=== PATIENT | female | born 1955 | race Caucasian/White ===

== ENCOUNTER 2017-03-07 22:15 | Emergency (ER) | payer OTHER, MEDICAID ==
[~2017-03-07] VITALS: Ht 167.6 cm; Wt 108.0 kg
[~2017-03-07 22:15] MED LIST: ACYC-63 PO; CRESTOR5 MG PO; DULO60CA6 PO; HYDR30CR61 TP; LISI-334 PO; LISI1TAB7 PO; LOVA40TA2 PO; OMEP40CA5 PO; OXYB5TAB7 PO; estrogen cream
[2017-03-07 22:30] VITALS: BP 141/95
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
[2017-03-07] MEDS ORDERED: IBUPROFEN 600 MG TABLET. PO ONE (23:30)
== END 2017-03-07 23:29 | disposition home or self-care (01) ==
LOC: ER 22:15
DX: S70.12XA Contusion of left thigh, initial encounter (principal); E78.00 Pure hypercholesterolemia, unspecified; I10 Essential (primary) hypertension; M19.90 Unspecified osteoarthritis, unspecified site; M79.7 Fibromyalgia; Z88.5 Allergy status to narcotic agent; Z88.6 Allergy status to analgesic agent; V89.2XXA Person injured in unspecified motor-vehicle accident, traffic, initial encounter; Y93.89 Activity, other specified; Y99.8 Other external cause status; Y92.89 Other specified places as the place of occurrence of the external cause
CPT/HCPCS: 99282

== ENCOUNTER → 2019-05-31 | Outpatient (CLI) | payer MEDICARE, MEDICAID ==
[~2019-05-31] MED LIST changes: +LISI1TAB20 PO; -LISI1TAB7 PO; +OMEP40CA45 PO; -OMEP40CA5 PO; +OXYB5TAB10 PO; -OXYB5TAB7 PO
--- NOTE | 2019-05-31 15:34 | RAD ---
Bilateral lower extremity venous duplex study 05/31/2019 12:00 AM Clinical History: Bilateral lower extremity pain Technique: Using a combination of real time ultrasound imaging and color-flow and pulse Doppler imaging techniques along with graded compression and augmentation, duplex evaluation of the deep venous system of the both lower extremities was performed. Multiple images were obtained. Findings: There is no sonographic evidence of deep venous thrombosis involving the visualized deep venous structures of either lower extremity. Impression: No evidence of deep venous thrombosis involving either lower extremity Electronically signed by: Edu Strong MD (05/31/2019 3:31 PM) [facility]
== END | disposition home or self-care (01) ==
LOC: US 13:52
PROVIDERS: ATTEND Family Medicine
DX: I87.2 Venous insufficiency (chronic) (peripheral) (principal); M79.7 Fibromyalgia
CPT/HCPCS: 93970

== ENCOUNTER → 2019-09-23 | Day surgery (SDC) | payer MEDICARE, MEDICAID ==
[~2019-09-23] MED LIST changes: +DULO30CA2 PO; +ESOM20CA PO; +FURO-69 PO; +IPRATRPIUM/ALBUTEROL 0.5/2.5MG 3 ML NEBU. NEB PRN; +IV RINGERS SOLUTION,LACTATED 1,000 ML IV SCH; +MELO15TA23 PO; +PROPOFOL 10,000 MCG/ML (20ML) VIAL IV ONE; +TIZA4TAB2 PO
[2019-09-23 13:15] VITALS: BP 147/72
--- NOTE | 2019-09-27 15:07 | PATHOLOGY ---
[facility] Accession Number: [id number] . 01 Material submitted: . PART A: stomach - ANTRUM BX PART B: stomach - GASTRIC POLYP . 01 Clinical history: . None provided . 02 Diagnosis: A. Gastric biopsies, antrum: - Chronic gastritis, mild to moderate. . B. Gastric biopsy, gastric polyp: - Fundic gland polyp. (M:[facility] 09/27/2019) [facility] 09/27/2019 0925 Local . 02 Comment: Sections of the gastric antral biopsy show congestion and mild to moderate chronic inflammation. A properly controlled immunoperoxidase stain for Helicobacter is negative for Helicobacter organisms. . Sections of the gastric polyp biopsy reveal a fundic gland polyp of gastric body mucosa. There are no adenomatous changes or evidence of malignancy. (JP:[facility] 09/27/2019) . Special stain performed: Immunoperoxidase for Helicobacter on A1. . 02 Electronically signed: . Griffin Garcia MD, Pathologist NPI- [id number] . 01 Gross description: . A. The specimen is received in formalin, labeled "Aaliyah Alec, antrum biopsy". Received are two segments of pale spear soft tissue ranging in size from 0.2 to 0.3 cm in maximum dimensions. The specimen is submitted entirely in cassette A1. . B. The specimen is received in formalin, labeled "Aaliyah Alec, gastric polyp". Received is a segment of pale spear soft tissue measuring 0.3 cm in maximum dimensions. The specimen is submitted entirely in cassette B1. ([facility]; 09/26/2019) [facility] 09/26/2019 1532 Local . 02 Pathologist provided ICD-10: K29.50, K31.7 . 02 CPT . 349874, 565439, [id number] Specimen Comment: A courtesy copy of this report has been sent to [phone], [phone] Specimen Comment: [id number] Specimen Comment: Report sent to / DR VELASCO Performed at: 01 [facility] [address], [place] [id number] MD Casey Malik MD Phone: [phone] Performed at: 02 [facility] [address], [place] [id number] MD Griffin Garcia MD Phone: [phone]
== END | disposition home or self-care (01) ==
LOC: SURG 10:16
PROVIDERS: ATTEND Internal Medicine Gastroenterology
DX: R19.4 Change in bowel habit (principal); Z11.59 Encounter for screening for other viral diseases; K64.1 Second degree hemorrhoids; K57.30 Diverticulosis of large intestine without perforation or abscess without bleeding; K22.70 Barrett's esophagus without dysplasia; K22.2 Esophageal obstruction; K44.9 Diaphragmatic hernia without obstruction or gangrene; K29.50 Unspecified chronic gastritis without bleeding; K31.7 Polyp of stomach and duodenum; F32.9 Major depressive disorder, single episode, unspecified; K21.9 Gastro-esophageal reflux disease without esophagitis; I10 Essential (primary) hypertension; Z88.8 Allergy status to other drugs, medicaments and biological substances; Z79.899 Other long term (current) drug therapy
CPT/HCPCS: 43239; 45378; 87635; 88305; 88342; J2704; J7120

== ENCOUNTER → 2019-12-14 | Outpatient (CLI) | payer MEDICARE, MEDICAID ==
[2019-09-23 13:15] VITALS: BP 147/72
[~2019-12-14] MED LIST changes: -IPRATRPIUM/ALBUTEROL 0.5/2.5MG 3 ML NEBU. NEB PRN; -IV RINGERS SOLUTION,LACTATED 1,000 ML IV SCH; -PROPOFOL 10,000 MCG/ML (20ML) VIAL IV ONE
--- NOTE | 2019-12-14 09:54 | RAD ---
Right lower extremity venous doppler ultrasound History: Right leg pain Comparison: None Findings: Multiple grayscale, color, and duplex spectral analysis sonographic images were acquired of the right lower extremity veins to evaluate for the presence of DVT. There is normal phasicity. Normal compression, color-flow, and augmentation is demonstrated from the right common femoral to the popliteal veins. There is normal color flow of the proximal greater saphenous and profunda femoris veins. There is normal color flow of segments of the calf veins. Impression: 1. There is no evidence of deep venous thrombosis from the right common femoral to the popliteal veins. Electronically signed by: Glenn Kim MD (12/14/2019 9:51 AM) [id number]
== END | disposition home or self-care (01) ==
LOC: US 09:02
PROVIDERS: ATTEND Family Medicine
DX: M79.604 Pain in right leg (principal)
CPT/HCPCS: 93971

== ENCOUNTER → 2020-04-03 | Outpatient (CLI) | payer MEDICARE, MEDICAID ==
[2019-09-23 13:15] VITALS: BP 147/72
--- NOTE | 2020-04-03 18:21 | CARD ---
MR#: [id number] Date of Study: 04/03/2020 Ordering Physician: DENISE GONZALEZ, Referring Physician: DENISE GONZALEZ, Tech: Tonya Rodas APPROVED REPORT EXAM: Two-dimensional and M-mode echocardiogram with Doppler and color Doppler. Other Information Quality : AverageHR: 59bpm INDICATION Dyspnea RISK FACTORS Hypertension Hyperlipidemia 2D DIMENSIONS RVDd3.3 (2.9-3.5cm)Left Atrium(2D)3.3 (1.6-4.0cm) IVSd1.0 (0.7-1.1cm)Aortic Root(2D)3.3 (2.0-3.7cm) LVDd4.7 (3.9-5.9cm)LVOT Diameter2.0 (1.8-2.4cm) PWd0.9 (0.7-1.1cm)LVDs3.7 (2.5-4.0cm) FS (%) 21.6 %SV44.5 ml Aortic Valve AoV Peak Neville.142.0cm/sAoV VTI34.9cm AO Peak GR.8.1mmHgLVOT Peak Neville.148.1cm/s LVOT VTI 34.26cmAO Mean GR.4mmHg DELANEY (VMAX)3.40yj9BQM (VTI)3.19cm2 Mitral Valve MV E Ajwlufko51.3cm/sMV DECEL GHUS172gp MV A Dmrjypzy20.2cm/sE/A Ratio0.7 Pulmonary Valve PV Peak Cjtxbzcs38.9cm/sPV Peak Grad.3mmHg Tricuspid Valve TR P. Cxbtrqlk100xu/sRAP ECJDLGDN1plUg TR Peak Gr.55gzRfXSMF07wsFh Pulmonary Vein S1 Cltfjfex55.5cm/sD2 Xaolptxr45.9cm/s LEFT VENTRICLE The left ventricle is normal size. There is normal left ventricular wall thickness. The left ventricu lar systolic function is normal and the ejection fraction is within normal range. The Ejection Fracti on is 50-55%. There is normal LV segmental wall motion. Transmitral Doppler flow pattern is Grade I-a bnormal relaxation pattern. RIGHT VENTRICLE The right ventricle is normal size. There is normal right ventricular wall thickness. The right ventr icular systolic function is normal. ATRIA The left atrium size is normal. The right atrium size is normal. The interatrial septum is intact wit h no evidence for an atrial septal defect or patent foramen ovale as noted on 2-D or Doppler imaging. AORTIC VALVE The aortic valve is normal in structure and function. Doppler and Color Flow revealed no significant aortic regurgitation. There is no significant aortic valvular stenosis. MITRAL VALVE The mitral valve is normal in structure and function. There is no evidence of mitral valve prolapse. There is no mitral valve stenosis. Doppler and Color-flow revealed trace mitral regurgitation. TRICUSPID VALVE The tricuspid valve is normal in structure and function. Doppler and Color Flow revealed trace tricus pid regurgitation with an estimated PAP of 17 mmHg. There is no tricuspid valve stenosis. PULMONIC VALVE The pulmonary valve is normal in structure and function. Doppler and Color Flow revealed trace pulmon ic valvular regurgitation. GREAT VESSELS The aortic root is normal in size. The ascending aorta is normal in size. The IVC is normal in size a nd collapses >50% with inspiration. PERICARDIAL EFFUSION There is no evidence of significant pericardial effusion. Critical Notification Critical Value: No <Conclusion> The left ventricle is normal size. The left ventricular systolic function is normal and the ejection fraction is within normal range. The Ejection Fraction is 50-55%. Doppler and Color Flow revealed no significant aortic regurgitation. There is no significant aortic valvular stenosis. Doppler and Color-flow revealed trace mitral regurgitation. Doppler and Color Flow revealed trace tricuspid regurgitation with an estimated PAP of 17 mmHg. Signed by : Charlie Ray MD Electronically Approved : 04/03/2020 18:20:31
== END ==
LOC: ECHO 08:05
PROVIDERS: ATTEND Internal Medicine Cardiovascular Disease
DX: R06.02 Shortness of breath (principal)
CPT/HCPCS: 93306

== ENCOUNTER → 2020-07-05 | Outpatient (CLI) | payer MEDICARE, MEDICAID ==
[2019-09-23 13:15] VITALS: BP 147/72
[~2020-07-05] MED LIST changes: -LISI-334 PO; +LISI20TA18 PO
--- NOTE | 2020-07-05 17:11 | RAD ---
XR KNEE 4 VIEWS WITH PATELLA_RT History: Reason: RIGHT KNEE PAIN / Spl. Instructions: / History: Comparison: None. Technique: 4 views of the right knee. Findings: There is no evidence for fracture. Alignment is normal. No destructive osseous lesions are seen. Joint space narrowing at the patellofemoral compartment with large osteophytes. Moderate medial and l ateral patellofemoral compartment osteophytes. Degenerative changes at the proximal tibiofibular join t. No significant joint effusion. Soft tissues are normal. Impression: 1. Right knee osteoarthritis greatest at the patellofemoral compartment. No acute findings. Electronically signed by: Nirav Villasenor MD (07/05/2020 5:08 PM) [facility]
== END ==
LOC: DXRAD 13:45
PROVIDERS: ATTEND Family Medicine
DX: M17.11 Unilateral primary osteoarthritis, right knee (principal); M25.761 Osteophyte, right knee
CPT/HCPCS: 73564

== ENCOUNTER → 2020-10-11 | Outpatient (CLI) | payer MEDICARE, MEDICAID ==
[2019-09-23 13:15] VITALS: BP 147/72
[~2020-10-11] MED LIST changes: -ACYC-63 PO; +ACYC200C84 PO; -OMEP40CA45 PO; +OMEP40CA7 PO
--- NOTE | 2020-10-11 17:16 | RAD ---
2 view study of the right tibia and fibula Clinical indications: Right leg pain. FINDINGS: No acute fracture or dislocation or lytic process is seen. No periosteal reaction is eviden t. Degenerative osteoarthritis of the 3 compartments of the right knee are seen and there is degenera tive osteoarthritis of the proximal tibiofibular joint compartment. A calcified varicosity is seen wi thin the anterior midshin. IMPRESSION: No acute osseous abnormality. Primary degenerative osteoarthritis of the right knee. Electronically signed by: Pedro Miller MD (10/11/2020 5:13 PM) [id number]
== END ==
LOC: DXRAD 16:27
PROVIDERS: ATTEND Family Medicine
DX: M17.11 Unilateral primary osteoarthritis, right knee (principal)
CPT/HCPCS: 73590

== ENCOUNTER → 2021-02-14 | Day surgery (SDC) | payer MEDICARE, MEDICAID ==
[~2021-02-14] MED LIST changes: +ASPI-630 PO; -DULO60CA6 PO; +DULO60CA7 PO; +PANT40TA6 PO
[2021-02-14 12:11] VITALS: BP 167/101
== END | disposition home or self-care (01) ==
LOC: SURG 12:03
PROVIDERS: ATTEND Anesthesiology
DX: M54.59 Other low back pain (principal); G89.29 Other chronic pain; M51.36 Other intervertebral disc degeneration, lumbar region; I10 Essential (primary) hypertension; E78.5 Hyperlipidemia, unspecified; K21.9 Gastro-esophageal reflux disease without esophagitis; M19.90 Unspecified osteoarthritis, unspecified site; Z90.711 Acquired absence of uterus with remaining cervical stump; Z90.49 Acquired absence of other specified parts of digestive tract; Z98.890 Other specified postprocedural states; Z79.899 Other long term (current) drug therapy
CPT/HCPCS: 99204; G0463

== ENCOUNTER → 2021-03-13 | Day surgery (SDC) | payer MEDICARE, MEDICAID ==
[~2021-03-13] MED LIST changes: +BUPIVACAINE MPF 0.25% 10 ML VIAL. ONE; +DEXAMETHASONE SOD PHOS 10 MG/ML VIAL. ONE; +IOHEXOL 300 MG/ML 50 ML VIAL. ONE; +LIDOCAINE 1% PF 30 ML VIAL. ONE; -LISI1TAB20 PO; +LISI1TAB39 PO; +TIZA-75 PO; -TIZA4TAB2 PO
[2021-03-13 13:27] VITALS: BP 132/74
== END | disposition home or self-care (01) ==
LOC: SURG 12:24
PROVIDERS: ATTEND Anesthesiology
DX: M47.26 Other spondylosis with radiculopathy, lumbar region (principal); M48.061 Spinal stenosis, lumbar region without neurogenic claudication; M17.10 Unilateral primary osteoarthritis, unspecified knee; I10 Essential (primary) hypertension; E66.9 Obesity, unspecified; E78.5 Hyperlipidemia, unspecified; K21.9 Gastro-esophageal reflux disease without esophagitis; Z90.710 Acquired absence of both cervix and uterus; Z98.890 Other specified postprocedural states; Z79.899 Other long term (current) drug therapy; Z79.82 Long term (current) use of aspirin; Z72.89 Other problems related to lifestyle; Z88.8 Allergy status to other drugs, medicaments and biological substances
CPT/HCPCS: 64483; 64484; J1100; J3490; Q9967

== ENCOUNTER → 2021-04-23 | Outpatient (CLI) | payer MEDICARE, MEDICAID ==
[2021-03-13 13:27] VITALS: BP 132/74
[~2021-04-23] MED LIST changes: -BUPIVACAINE MPF 0.25% 10 ML VIAL. ONE; -DEXAMETHASONE SOD PHOS 10 MG/ML VIAL. ONE; -IOHEXOL 300 MG/ML 50 ML VIAL. ONE; -LIDOCAINE 1% PF 30 ML VIAL. ONE
--- NOTE | 2021-04-23 17:42 | CARD ---
MR#: [id number] Date of Study: 04/23/2021 Ordering Physician: DENISE PRICE, Referring Physician: DENISE PRICE, Tech: Tonya Rodas [facility] APPROVED REPORT EXAM: Two-dimensional and M-mode echocardiogram with Doppler and color Doppler. Other Information Quality : AverageHR: 63bpm INDICATION Hypertension/HCVD RISK FACTORS Hyperlipidemia Asthma 2D DIMENSIONS RVDd3.2 (2.9-3.5cm)Left Atrium(2D)3.3 (1.6-4.0cm) IVSd0.9 (0.7-1.1cm)Aortic Root(2D)3.2 (2.0-3.7cm) LVDd4.6 (3.9-5.9cm)LVOT Diameter2.0 (1.8-2.4cm) PWd1.0 (0.7-1.1cm)LVDs2.9 (2.5-4.0cm) FS (%) 37.0 %SV66.2 ml LVEF(%)67.0 (>50%) Aortic Valve AoV Peak Neville.147.4cm/sAoV VTI35.6cm AO Peak GR.8.7mmHgLVOT Peak Neville.139.3cm/s LVOT VTI 30.16cmAO Mean GR.5mmHg DELANEY (VMAX)2.31cp9VUE (VTI)2.55cm2 Mitral Valve MV E Jawoevfg61.6cm/sMV E Peak Gr.4mmHg MV DECEL EWVZ056ueOV A Jhtcrmyb77.5cm/s MV E Mean Gr.1mmHgE/A Ratio0.7 Pulmonary Valve PV Peak Itgkigen98.1cm/sPV Peak Grad.4mmHg Tricuspid Valve TR P. Txuhzmei254qr/sRAP VFBOKVJJ6fzKf TR Peak Gr.06faMjSXJM36wrHu Pulmonary Vein S1 Rprmznpz23.2cm/sD2 Lmicgxly60.1cm/s LEFT VENTRICLE The left ventricle is normal size. There is normal left ventricular wall thickness. The left ventricu lar systolic function is normal. The Ejection Fraction is 50-55%. There is normal LV segmental wall m otion. Transmitral Doppler flow pattern is Grade I-abnormal relaxation pattern. RIGHT VENTRICLE The right ventricle is normal size. There is normal right ventricular wall thickness. The right ventr icular systolic function is normal. ATRIA The left atrium size is normal. The right atrium size is normal. The interatrial septum is intact wit h no evidence for an atrial septal defect or patent foramen ovale as noted on 2-D or Doppler imaging. AORTIC VALVE The aortic valve is normal in structure and function. Doppler and Color Flow revealed no significant aortic regurgitation. There is no significant aortic valvular stenosis. Calculated aortic valve area is 2.5 cm2 with maximum pressure gradient of 9 mmHg and mean pressure gradient of 5 mmHg. MITRAL VALVE The mitral valve is normal in structure and function. There is no evidence of mitral valve prolapse. There is no mitral valve stenosis. Doppler and Color Flow revealed no mitral valve regurgitation note d. TRICUSPID VALVE The tricuspid valve is normal in structure and function. Doppler and Color Flow revealed trace tricus pid regurgitation with an estimated PAP of 35 mmHg. There is no tricuspid valve stenosis. PULMONIC VALVE The pulmonary valve is normal in structure and function. Doppler and Color Flow revealed trace pulmon ic valvular regurgitation. GREAT VESSELS The aortic root is normal in size. The IVC is normal in size and collapses >50% with inspiration. PERICARDIAL EFFUSION There is no evidence of significant pericardial effusion. Critical Notification Critical Value: No <Conclusion> The left ventricular systolic function is normal. The Ejection Fraction is 50-55%. There is normal LV segmental wall motion. Transmitral Doppler flow pattern is Grade I-abnormal relaxation pattern. Trace tricuspid regurgitation with an estimated PAP of 35 mmHg. There is no evidence of significant pericardial effusion. Signed by : Denise Price, Electronically Approved : 04/23/2021 17:41:29
== END ==
LOC: ECHO 08:36
PROVIDERS: ATTEND Internal Medicine Cardiovascular Disease
DX: I10 Essential (primary) hypertension (principal)
CPT/HCPCS: 93306

== ENCOUNTER → 2021-04-23 | Outpatient (CLI) | payer MEDICARE, MEDICAID ==
[2021-03-13 13:27] VITALS: BP 132/74
--- NOTE | 2021-04-25 07:58 | RAD ---
BILATERAL DIGITAL SCREENING 2-D AND 3-D MAMMOGRAM INDICATION: Routine screening. COMPARISON: January 06, 2018, September 04, 2016, June 27, 2015 Interpretation was made using CAD. FINDINGS: Breast Density: The breasts are almost entirely fatty. RIGHT BREAST: No suspicious masses, calcifications or areas of architectural distortion are seen. LEFT BREAST: No suspicious masses, calcifications or areas of architectural distortion are seen. IMPRESSION: 1. No imaging evidence of malignancy. ASSESSMENT: BI-RADS 1. Negative. RECOMMENDATION: Routine annual screening mammogram. The facility will notify the patient of the results via mail. Patient information will be entered int o the mammography reminder system with a target recall date for the next mammogram. A reminder letter will be generated by the facility. Electronically signed by: Marichuy Ruano MD (04/25/2021 7:55 AM) [id number]
== END ==
LOC: MAMMO 07:51
PROVIDERS: ATTEND Family Medicine
DX: Z12.31 Encounter for screening mammogram for malignant neoplasm of breast (principal)
CPT/HCPCS: 77063; 77067

== ENCOUNTER → 2021-04-24 | Day surgery (SDC) | payer MEDICARE, MEDICAID ==
[~2021-04-24] MED LIST changes: +BUPIVACAINE MPF 0.25% 10 ML VIAL. ONE; +DEXAMETHASONE SOD PHOS 10 MG/ML VIAL. ONE; +IOHEXOL 300 MG/ML 50 ML VIAL. ONE; +LIDOCAINE 1% PF 30 ML VIAL. ONE
[2021-04-24 11:11] VITALS: BP 140/83
== END | disposition home or self-care (01) ==
LOC: SURG 10:34
PROVIDERS: ATTEND Anesthesiology
DX: M47.26 Other spondylosis with radiculopathy, lumbar region (principal); M48.061 Spinal stenosis, lumbar region without neurogenic claudication; I10 Essential (primary) hypertension; E66.9 Obesity, unspecified; M17.10 Unilateral primary osteoarthritis, unspecified knee; E78.5 Hyperlipidemia, unspecified; K21.9 Gastro-esophageal reflux disease without esophagitis; Z90.710 Acquired absence of both cervix and uterus; Z98.890 Other specified postprocedural states; Z79.899 Other long term (current) drug therapy; Z79.82 Long term (current) use of aspirin; Z72.89 Other problems related to lifestyle; Z88.8 Allergy status to other drugs, medicaments and biological substances
CPT/HCPCS: 64483; A4209; A4657; A4930; J1100; J3490; Q9967

== ENCOUNTER → 2021-05-29 | Day surgery (SDC) | payer MEDICARE, MEDICAID ==
[~2021-05-29] MED LIST changes: +ACET500T68 PO; -BUPIVACAINE MPF 0.25% 10 ML VIAL. ONE; -DEXAMETHASONE SOD PHOS 10 MG/ML VIAL. ONE; +FLUT9.9S NS; -IOHEXOL 300 MG/ML 50 ML VIAL. ONE; -LIDOCAINE 1% PF 30 ML VIAL. ONE
[2021-05-29 10:18] VITALS: BP 145/85
== END | disposition home or self-care (01) ==
LOC: SURG 10:13
PROVIDERS: ATTEND Anesthesiology
DX: M54.16 Radiculopathy, lumbar region (principal); G89.29 Other chronic pain; M47.816 Spondylosis without myelopathy or radiculopathy, lumbar region; M48.061 Spinal stenosis, lumbar region without neurogenic claudication; I10 Essential (primary) hypertension; E66.9 Obesity, unspecified; M46.1 Sacroiliitis, not elsewhere classified; E78.5 Hyperlipidemia, unspecified; K21.9 Gastro-esophageal reflux disease without esophagitis; Z98.890 Other specified postprocedural states; Z79.899 Other long term (current) drug therapy; Z90.711 Acquired absence of uterus with remaining cervical stump; Z90.49 Acquired absence of other specified parts of digestive tract
CPT/HCPCS: 99214; G0463

== ENCOUNTER → 2021-07-10 | Day surgery (SDC) | payer MEDICARE, MEDICAID ==
[~2021-07-10] MED LIST changes: +BUPIVACAINE MPF 0.25% 10 ML VIAL. ONE; +DEXAMETHASONE SOD PHOS 10 MG/ML VIAL. ONE; +IOHEXOL 300 MG/ML 50 ML VIAL. ONE; +LIDOCAINE 1% PF 30 ML VIAL. ONE
[2021-07-10 12:22] VITALS: BP 184/86
== END | disposition home or self-care (01) ==
LOC: SURG 11:39
PROVIDERS: ATTEND Anesthesiology
DX: M54.16 Radiculopathy, lumbar region (principal); I10 Essential (primary) hypertension; K21.9 Gastro-esophageal reflux disease without esophagitis; E78.5 Hyperlipidemia, unspecified; E66.9 Obesity, unspecified; M46.1 Sacroiliitis, not elsewhere classified; M17.10 Unilateral primary osteoarthritis, unspecified knee; F32.9 Major depressive disorder, single episode, unspecified; I87.2 Venous insufficiency (chronic) (peripheral); M48.061 Spinal stenosis, lumbar region without neurogenic claudication; Z90.710 Acquired absence of both cervix and uterus; Z79.899 Other long term (current) drug therapy; Z98.890 Other specified postprocedural states; Z88.8 Allergy status to other drugs, medicaments and biological substances; Z79.82 Long term (current) use of aspirin
CPT/HCPCS: 64483; 64484; A4209; A4657; A4930; J1100; J3490; Q9967

== ENCOUNTER → 2021-07-24 | Day surgery (SDC) | payer MEDICARE, MEDICAID ==
[~2021-07-24] MED LIST changes: -BUPIVACAINE MPF 0.25% 10 ML VIAL. ONE; -DEXAMETHASONE SOD PHOS 10 MG/ML VIAL. ONE; -IOHEXOL 300 MG/ML 50 ML VIAL. ONE; -LIDOCAINE 1% PF 30 ML VIAL. ONE
[2021-07-24 14:53] VITALS: BP 130/86
== END | disposition home or self-care (01) ==
LOC: SURG 14:41
PROVIDERS: ATTEND Anesthesiology
DX: M54.16 Radiculopathy, lumbar region (principal); I10 Essential (primary) hypertension; E78.5 Hyperlipidemia, unspecified; K21.9 Gastro-esophageal reflux disease without esophagitis; E66.9 Obesity, unspecified; M48.061 Spinal stenosis, lumbar region without neurogenic claudication; M17.10 Unilateral primary osteoarthritis, unspecified knee; Z90.710 Acquired absence of both cervix and uterus; Z98.890 Other specified postprocedural states; Z79.899 Other long term (current) drug therapy; Z79.82 Long term (current) use of aspirin; Z88.8 Allergy status to other drugs, medicaments and biological substances
CPT/HCPCS: 99214; G0463